=== PATIENT | female | born 1980 | race Caucasian/White ===

== ENCOUNTER 2017-02-04 15:37 | Emergency (ER) | payer MEDICAID ==
[~2017-02-04] VITALS: Ht 167.6 cm; Wt 64.1 kg
[2017-02-04] MEDS ORDERED: CHLO5CAP3 PO (15:56)
[2017-02-04] MEDS ORDERED: BUDE10.22 IH (15:56)
[2017-02-04] MEDS ORDERED: CITA10TA13 PO (15:56)
[2017-02-04] MEDS ORDERED: ALBU8.5H IH (15:56)
[2017-02-04 16:59] LABS: BASOPHILS # (AUTO) 0.05 K/uL (0.00-0.20); BASOPHILS % (AUTO) 1.4 % (0.0-2.0); EOSINOPHILS # (AUTO) 0.09 K/uL (0.00-0.70); HEMATOCRIT 36.6 % (36-46); HEMOGLOBIN 12.6 g/dL (12.0-16.0); LYMPHOCYTES # (AUTO) 1.4 K/uL (1.0-4.8); LYMPHOCYTES % (AUTO) 38.5 % (22.0-44.0); MEAN CORPUSCULAR HEMOGLOBIN 34.1 pg (26.0-34.0); MEAN CORPUSCULAR HGB CONC 34.4 G/dL (31.0-37.0); MEAN CORPUSCULAR VOLUME 99 fL (80-100); MONOCYTES # (AUTO) 0.7 K/uL (0.1-1.0); MONOCYTES % (AUTO) 19.6 % (2.0-9.0); NEUTROPHILS # (AUTO) 1.4 K/uL (1.8-7.7); NEUTROPHILS % (AUTO) 37.9 % (40.0-70.0); PLATELET COUNT (AUTO) 154 K/uL (150-450); RED BLOOD CELL COUNT(AUTO) 3.69 MIL/uL (4.00-5.20); RED CELL DISTRIBUTION WIDTH 16.6 % (11.5-14.5); WHITE BLOOD COUNT (AUTO) 3.6 K/uL (4.5-11.0)
[2017-02-04 17:18] LABS: ANION GAP 18 mmol/L (8-16); CALCIUM, TOTAL 8.5 mg/dL (8.8-10.5); CARBON DIOXIDE 26 mmol/L (22-29); CHLORIDE 104 mmol/L (98-107); CREATININE 0.64 mg/dL (0.60-1.30); GLOMERULAR FILTR. RATE CALC > 60 mL/min (>60); POTASSIUM 3.1 mmol/L (3.5-5.1); SODIUM SERUM 148 mmol/L (136-145); UREA NITROGEN, BLOOD 5 mg/dL (7-18)
[2017-02-04 17:20] LABS: RBC MORPHOLOGY COMMENT NORMAL RBC MORPH
[2017-02-04 17:26] LABS: ALANINE AMINOTRANSFERASE 118 U/L (12-78); ALBUMIN 4.2 g/dL (3.4-5.0); ASPARTATE AMINOTRANSFERASE 293 U/L (15-37); BILIRUBIN,TOTAL 0.5 mg/dL (0.1-1.0); TOTAL PROTEIN, SERUM 7.1 g/dL (6.4-8.2)
[2017-02-04] MEDS ORDERED: MAGNESIUM SULFATE 2 GM, MVI, ADULT NO.1 WITH VIT K 10 ML, THIAMINE HCL 100 MG, FOLIC AC... IV ONE ×5 (18:00)
[2017-02-04] MEDS ORDERED: POTASSIUM CHLORIDE 20 MEQ ER TABLET PO ONE (18:00)
[2017-02-04 19:55] VITALS: BP 118/78
== END 2017-02-04 19:55 | disposition home or self-care (01) ==
LOC: EMS 15:40
DX: F10.229 Alcohol dependence with intoxication, unspecified (principal); F17.210 Nicotine dependence, cigarettes, uncomplicated; J44.9 Chronic obstructive pulmonary disease, unspecified; Z91.018 Allergy to other foods
CPT/HCPCS: 36415; 80053; 80307; 84703; 85025; 96365; 99284; 99406; G0480; J3411; J3475; J3490 ×2; J7030

== ENCOUNTER 2017-03-01 12:33 | Emergency (ER) | payer MEDICAID ==
[~2017-03-01] VITALS: Ht 167.6 cm; Wt 55.9 kg
[~2017-03-01 12:33] MED LIST: ALBU8.5H8 IH; BUDE10.22 IH; CHLO5CAP3 PO; CITA10TA13 PO
[2017-03-01 14:44] LABS: BASOPHILS # (AUTO) 0.03 K/uL (0.00-0.20); EOSINOPHILS # (AUTO) 0.13 K/uL (0.00-0.70); EOSINOPHILS % (AUTO) 3.93 % (1.0-6.0); HEMATOCRIT 37.1 % (36-46); HEMOGLOBIN 12.9 g/dL (12.0-16.0); LYMPHOCYTES % (AUTO) 31.1 % (22.0-44.0); MEAN CORPUSCULAR HEMOGLOBIN 35.6 pg (26.0-34.0); MEAN CORPUSCULAR HGB CONC 34.8 G/dL (31.0-37.0); MEAN CORPUSCULAR VOLUME 102 fL (80-100); MONOCYTES # (AUTO) 0.5 K/uL (0.1-1.0); MONOCYTES % (AUTO) 15.3 % (2.0-9.0); NEUTROPHILS # (AUTO) 1.6 K/uL (1.8-7.7); NEUTROPHILS % (AUTO) 48.7 % (40.0-70.0); PLATELET COUNT (AUTO) 161 K/uL (150-450); RED BLOOD CELL COUNT(AUTO) 3.62 MIL/uL (4.00-5.20); RED CELL DISTRIBUTION WIDTH 15.9 % (11.5-14.5); WHITE BLOOD COUNT (AUTO) 3.3 K/uL (4.5-11.0)
[2017-03-01 14:54] LABS: ANION GAP 11 mmol/L (8-16); CALCIUM, TOTAL 8.8 mg/dL (8.8-10.5); CARBON DIOXIDE 32 mmol/L (22-29); CHLORIDE 102 mmol/L (98-107); CREATININE 0.52 mg/dL (0.60-1.30); GLOMERULAR FILTR. RATE CALC > 60 mL/min (>60); SODIUM SERUM 145 mmol/L (136-145); UREA NITROGEN, BLOOD 3 mg/dL (7-18)
[2017-03-01 15:00] LABS: ALANINE AMINOTRANSFERASE 98 U/L (12-78); ALBUMIN 4.2 g/dL (3.4-5.0); ASPARTATE AMINOTRANSFERASE 167 U/L (15-37); BILIRUBIN,TOTAL 0.4 mg/dL (0.1-1.0); TOTAL PROTEIN, SERUM 7.2 g/dL (6.4-8.2)
[2017-03-01 15:29] LABS: RBC MORPHOLOGY COMMENT ABNORMAL RBC MORPH
[2017-03-01] MEDS ORDERED: POTASSIUM CHLORIDE 20 MEQ ER TABLET PO ONE (15:45)
[2017-03-01 16:04] VITALS: BP 124/89
== END 2017-03-01 16:17 | disposition home or self-care (01) ==
LOC: EMS 12:34
DX: F10.229 Alcohol dependence with intoxication, unspecified (principal); J44.9 Chronic obstructive pulmonary disease, unspecified; F17.210 Nicotine dependence, cigarettes, uncomplicated; Y90.7 Blood alcohol level of 200-239 mg/100 ml; Z88.8 Allergy status to other drugs, medicaments and biological substances
CPT/HCPCS: 36415; 80053; 80307; 84703; 85025; 99284; 99406; G0480

== ENCOUNTER 2017-03-12 13:23 | Emergency (ER) | payer SELFPAY ==
[~2017-03-12] VITALS: Ht 167.6 cm; Wt 68.0 kg
[2017-03-12 13:53] LABS: BASOPHILS % (AUTO) 1.5 % (0.0-2.0); EOSINOPHILS % (AUTO) 1.8 % (1.0-6.0); HEMATOCRIT 38.9 % (36-46); HEMOGLOBIN 13.3 g/dL (12.0-16.0); LYMPHOCYTES # (AUTO) 1.2 K/uL (1.0-4.8); MEAN CORPUSCULAR HEMOGLOBIN 35.3 pg (26.0-34.0); MEAN CORPUSCULAR HGB CONC 34.1 G/dL (31.0-37.0); MEAN CORPUSCULAR VOLUME 103 fL (80-100); MONOCYTES # (AUTO) 1.2 K/uL (0.1-1.0); MONOCYTES % (AUTO) 16.4 % (2.0-9.0); NEUTROPHILS # (AUTO) 4.7 K/uL (1.8-7.7); NEUTROPHILS % (AUTO) 64.3 % (40.0-70.0); PLATELET COUNT (AUTO) 372 K/uL (150-450); RED BLOOD CELL COUNT(AUTO) 3.76 MIL/uL (4.00-5.20); RED CELL DISTRIBUTION WIDTH 14.9 % (11.5-14.5); WHITE BLOOD COUNT (AUTO) 7.3 K/uL (4.5-11.0)
[2017-03-12 14:04] LABS: ANION GAP 11 mmol/L (8-16); CALCIUM, TOTAL 8.9 mg/dL (8.8-10.5); CARBON DIOXIDE 25 mmol/L (22-29); CHLORIDE 102 mmol/L (98-107); CREATININE 0.63 mg/dL (0.60-1.30); GLOMERULAR FILTR. RATE CALC > 60 mL/min (>60); POTASSIUM 3.8 mmol/L (3.5-5.1); SODIUM SERUM 138 mmol/L (136-145); UREA NITROGEN, BLOOD 7 mg/dL (7-18)
[2017-03-12 14:10] LABS: ALANINE AMINOTRANSFERASE 72 U/L (12-78); ALBUMIN 4.2 g/dL (3.4-5.0); ASPARTATE AMINOTRANSFERASE 43 U/L (15-37); BILIRUBIN,TOTAL 0.3 mg/dL (0.1-1.0); TOTAL PROTEIN, SERUM 7.6 g/dL (6.4-8.2)
[2017-03-12] MEDS ORDERED: ChlordiazePOXIDE HCL 10 MG CAPSULE PO ONE (15:15)
[2017-03-12] MEDS ORDERED: LevETIRAcetam 500 MG TABLET PO ONE (15:15)
[2017-03-12 15:36] VITALS: BP 162/99
== END 2017-03-12 16:09 | disposition home or self-care (01) ==
LOC: EMS 13:26
DX: R56.9 Unspecified convulsions (principal); M54.2 Cervicalgia; J44.9 Chronic obstructive pulmonary disease, unspecified; F17.210 Nicotine dependence, cigarettes, uncomplicated; Z91.018 Allergy to other foods
CPT/HCPCS: 36415; 70450; 72125; 73070; 80053; 84703; 85025; 99285; G0480

== ENCOUNTER 2017-09-27 15:36 | Emergency (ER) | payer MEDICAID ==
[~2017-09-27] VITALS: Ht 167.6 cm; Wt 60.0 kg
[2017-09-27 16:55] LABS: BASOPHILS % (AUTO) 0.9 % (0.0-2.0); EOSINOPHILS % (AUTO) 1.3 % (1.0-6.0); HEMATOCRIT 36.4 % (36-46); HEMOGLOBIN 12.7 g/dL (12.0-16.0); LYMPHOCYTES # (AUTO) 1.5 K/uL (1.0-4.8); LYMPHOCYTES % (AUTO) 26.1 % (22.0-44.0); MEAN CORPUSCULAR HEMOGLOBIN 35.3 pg (26.0-34.0); MEAN CORPUSCULAR HGB CONC 34.8 G/dL (31.0-37.0); MEAN CORPUSCULAR VOLUME 101 fL (80-100); MONOCYTES # (AUTO) 0.8 K/uL (0.1-1.0); MONOCYTES % (AUTO) 13.4 % (2.0-9.0); NEUTROPHILS # (AUTO) 3.3 K/uL (1.8-7.7); NEUTROPHILS % (AUTO) 58.3 % (40.0-70.0); PLATELET COUNT (AUTO) 97 K/uL (150-450); RED BLOOD CELL COUNT(AUTO) 3.59 MIL/uL (4.00-5.20); RED CELL DISTRIBUTION WIDTH 15.2 % (11.5-14.5)
[2017-09-27 17:02] LABS: ANION GAP 14 mmol/L (8-16); CALCIUM, TOTAL 9.2 mg/dL (8.8-10.5); CARBON DIOXIDE 27 mmol/L (22-29); CHLORIDE 98 mmol/L (98-107); CREATININE 0.64 mg/dL (0.60-1.30); GLOMERULAR FILTR. RATE CALC > 60 mL/min (>60); GLUCOSE,RANDOM 145 mg/dL (70-110); POTASSIUM 3.5 mmol/L (3.5-5.1); SODIUM SERUM 139 mmol/L (136-145); UREA NITROGEN, BLOOD 6 mg/dL (7-18)
[2017-09-27 17:07] LABS: ALANINE AMINOTRANSFERASE 149 U/L (12-78); ALBUMIN 4.1 g/dL (3.4-5.0); ALKALINE PHOSPHATASE 131 U/L (46-116); ASPARTATE AMINOTRANSFERASE 379 U/L (15-37); BILIRUBIN,TOTAL 1.3 mg/dL (0.1-1.0); LIPASE 647 U/L (73-393); TOTAL PROTEIN, SERUM 7.4 g/dL (6.4-8.2)
[2017-09-27 17:08] LABS: PROTHROMBIN TIME 10.2 SEC (9.4-11.6)
[2017-09-27 17:11] LABS: AMPHET/METH SCREEN,URINE NEGATIVE (NEGATIVE); BARBITURATE SCREEN, URINE NEGATIVE (NEGATIVE); BENZODIAZEPINES SCREEN,URINE NEGATIVE (NEGATIVE); CANNABINOID SCREEN,URINE NEGATIVE (NEGATIVE); COCAINE SCREEN,URINE NEGATIVE (NEGATIVE); METHADONE SCREEN, URINE NEGATIVE (NEGATIVE); OPIATE SCREEN,URINE NEGATIVE (NEGATIVE)
[2017-09-27 17:12] LABS: PHENCYCLIDINE SCREEN,URINE NEGATIVE (NEGATIVE)
[2017-09-27 17:17] LABS: PLATELET MORPHOLOGY COMMENT LARGE PLTS PRESENT
[2017-09-27] MEDS ORDERED: PB/HYOSCY/ATR/SCOP/LIDO/MAALOX 55 ML BOTTLE PO ONE (17:45)
[2017-09-27] MEDS ORDERED: SODIUM CHLORIDE 0.9% 1,000 ML IV ONE (17:45)
[2017-09-27] MEDS ORDERED: ONDANSETRON HCL 4 MG/2 ML VIAL IVP ONE (17:45)
[2017-09-27 19:31] LABS: APPEARANCE,URINE CLEAR (CLEAR); BILIRUBIN,URINE NEGATIVE (NEGATIVE); GLUCOSE, URINE (UA) NEGATIVE (NEGATIVE); KETONES,URINE >=80 mg/dL (NEGATIVE); LEUKOCYTE ESTERASE ,URINE TRACE (NEGATIVE); NITRATE,URINE NEGATIVE (NEGATIVE); OCCULT BLOOD,URINE NEGATIVE (NEGATIVE); PH,URINE 6.5 (5.0-8.0); PROTEIN,URINE TRACE (NEGATIVE)
[2017-09-27 20:16] LABS: BACTERIA,URINE Rare /HPF (None Seen); RBC,URINE 0-2 /HPF (0-2); SQUAMOUS EPITHELIAL CELL,UR Few /LPF (None Seen)
[2017-09-27 21:20] VITALS: BP 136/67
== END 2017-09-27 21:41 | disposition home or self-care (01) ==
LOC: EMS 15:37
DX: F10.229 Alcohol dependence with intoxication, unspecified (principal); K85.90 Acute pancreatitis without necrosis or infection, unspecified; K76.9 Liver disease, unspecified; J44.9 Chronic obstructive pulmonary disease, unspecified; F17.210 Nicotine dependence, cigarettes, uncomplicated; Y90.7 Blood alcohol level of 200-239 mg/100 ml
CPT/HCPCS: 36415; 76705; 80053; 80307; 81001; 83690; 84703; 85025; 85610; 85730; 86850; 86900; 86901; 93005; 96374; 99285; 99406; G0480; J2405; J7030; Z7610

== ENCOUNTER 2018-08-17 16:08 | Emergency (ER) | payer MEDICAID ==
[~2018-08-17] VITALS: Ht 165.1 cm; Wt 65.9 kg
[~2018-08-17 16:08] MED LIST changes: -CHLO5CAP3 PO; -CITA10TA13 PO
[2018-08-17] MEDS ORDERED: DEPRESSION PO (16:14)
[2018-08-17] MEDS ORDERED: BENZOCAINE/MENTHOL LOZENGE PO ONE (17:30)
[2018-08-17] MEDS ORDERED: ACETAMINOPHEN 500 MG TABLET PO ONE (17:30)
[2018-08-17 17:54] LABS: BASOPHILS % (AUTO) 0.3 % (0.0-2.0); EOSINOPHILS % (AUTO) 0.6 % (1.0-6.0); HEMATOCRIT 37.9 % (36-46); HEMOGLOBIN 12.8 g/dL (12.0-16.0); LYMPHOCYTES # (AUTO) 1.8 K/uL (1.0-4.8); LYMPHOCYTES % (AUTO) 15.6 % (22.0-44.0); MEAN CORPUSCULAR HEMOGLOBIN 32.7 pg (26.0-34.0); MEAN CORPUSCULAR HGB CONC 33.9 G/dL (31.0-37.0); MEAN CORPUSCULAR VOLUME 97 fL (80-100); MONOCYTES # (AUTO) 0.8 K/uL (0.1-1.0); MONOCYTES % (AUTO) 7.2 % (2.0-9.0); NEUTROPHILS # (AUTO) 8.9 K/uL (1.8-7.7); NEUTROPHILS % (AUTO) 76.3 % (40.0-70.0); PLATELET COUNT (AUTO) 342 K/uL (150-450); RED BLOOD CELL COUNT(AUTO) 3.93 MIL/uL (4.00-5.20)
[2018-08-17 18:03] LABS: ANION GAP 5 mmol/L (8-16); CALCIUM, TOTAL 8.4 mg/dL (8.8-10.5); CARBON DIOXIDE 32 mmol/L (22-29); CHLORIDE 106 mmol/L (98-107); GLOMERULAR FILTR. RATE CALC > 60 mL/min (>60); GLUCOSE,RANDOM 92 mg/dL (70-110); POTASSIUM 3.4 mmol/L (3.5-5.1); SODIUM SERUM 143 mmol/L (136-145); UREA NITROGEN, BLOOD 6 mg/dL (7-18)
[2018-08-17 18:22] LABS: APPEARANCE,URINE CLOUDY (CLEAR); BILIRUBIN,URINE NEGATIVE (NEGATIVE); GLUCOSE, URINE (UA) NEGATIVE (NEGATIVE); KETONES,URINE NEGATIVE (NEGATIVE); LEUKOCYTE ESTERASE ,URINE NEGATIVE (NEGATIVE); NITRATE,URINE NEGATIVE (NEGATIVE); OCCULT BLOOD,URINE NEGATIVE (NEGATIVE); PROTEIN,URINE NEGATIVE (NEGATIVE); UROBILINOGEN,URINE 0.2 mg/dL (<=1.0)
[2018-08-17 18:33] LABS: BACTERIA,URINE None Seen /HPF (None Seen); RBC,URINE None Seen /HPF (0-2); SQUAMOUS EPITHELIAL CELL,UR Few /LPF (None Seen); WBC,URINE 0-2 /HPF (0-5)
[2018-08-17 18:34] LABS: RAPID GROUP A STREP POSITIVE (NEGATIVE)
[2018-08-17 18:39] LABS: INFLUENZA TYPE A NEGATIVE FOR TYPE A (NEGATIVE)
[2018-08-17 18:40] LABS: INFLUENZA TYPE B NEGATIVE FOR TYPE B (NEGATIVE)
[2018-08-17 18:51] VITALS: BP 109/71
== END 2018-08-17 19:21 | disposition home or self-care (01) ==
LOC: EMS 16:09
DX: J02.0 Streptococcal pharyngitis (principal); J44.9 Chronic obstructive pulmonary disease, unspecified; F32.9 Major depressive disorder, single episode, unspecified; F41.9 Anxiety disorder, unspecified; F17.210 Nicotine dependence, cigarettes, uncomplicated; Z91.018 Allergy to other foods
CPT/HCPCS: 87430; 87804; 99406

== ENCOUNTER 2018-08-20 21:14 | Emergency (ER) | payer MEDICAID ==
[~2018-08-20] VITALS: Ht 165.1 cm; Wt 59.1 kg
[~2018-08-20 21:14] MED LIST changes: +DEPRESSION PO
[2018-08-20] MEDS ORDERED: FOLI0.4T2 PO (22:11)
[2018-08-20] MEDS ORDERED: CARBXR100 PO (22:11)
[2018-08-20] MEDS ORDERED: AMOX500T2 PO (22:11)
[2018-08-20] MEDS ORDERED: KETOROLAC TROMETHAMINE 30 MG/ML VIAL IVP ONE (23:00)
[2018-08-20] MEDS ORDERED: SODIUM CHLORIDE 0.9% 1,000 ML IV ONE (23:00)
[2018-08-20 23:17] LABS: BASOPHILS % (AUTO) 0.8 % (0.0-2.0); EOSINOPHILS % (AUTO) 0.9 % (1.0-6.0); HEMATOCRIT 38.7 % (36-46); HEMOGLOBIN 13.2 g/dL (12.0-16.0); LYMPHOCYTES # (AUTO) 2.2 K/uL (1.0-4.8); LYMPHOCYTES % (AUTO) 30.8 % (22.0-44.0); MEAN CORPUSCULAR HEMOGLOBIN 32.4 pg (26.0-34.0); MEAN CORPUSCULAR VOLUME 95 fL (80-100); MONOCYTES # (AUTO) 0.7 K/uL (0.1-1.0); MONOCYTES % (AUTO) 10.1 % (2.0-9.0); NEUTROPHILS % (AUTO) 57.4 % (40.0-70.0); PLATELET COUNT (AUTO) 325 K/uL (150-450); RED BLOOD CELL COUNT(AUTO) 4.06 MIL/uL (4.00-5.20); RED CELL DISTRIBUTION WIDTH 14.4 % (11.5-14.5)
[2018-08-20 23:28] LABS: ANION GAP 10 mmol/L (8-16); CALCIUM, TOTAL 8.8 mg/dL (8.8-10.5); CARBON DIOXIDE 30 mmol/L (22-29); CHLORIDE 103 mmol/L (98-107); CREATININE 0.49 mg/dL (0.60-1.30); GLOMERULAR FILTR. RATE CALC > 60 mL/min (>60); GLUCOSE,RANDOM 88 mg/dL (70-110); POTASSIUM 3.7 mmol/L (3.5-5.1); SODIUM SERUM 143 mmol/L (136-145); UREA NITROGEN, BLOOD 7 mg/dL (7-18)
[2018-08-20 23:44] LABS: ALANINE AMINOTRANSFERASE 16 U/L (12-78); ALBUMIN 3.6 g/dL (3.4-5.0); ALKALINE PHOSPHATASE 87 U/L (46-116); ASPARTATE AMINOTRANSFERASE 19 U/L (15-37); BILIRUBIN,TOTAL 0.2 mg/dL (0.1-1.0); HCG,QUANTITATIVE < 1 mIU/mL (0-6); LIPASE 183 U/L (73-393); TOTAL PROTEIN, SERUM 7.4 g/dL (6.4-8.2)
[2018-08-21 01:23] VITALS: BP 123/89
== END 2018-08-21 01:26 | disposition home or self-care (01) ==
LOC: EMS 21:15
DX: F10.129 Alcohol abuse with intoxication, unspecified (principal); R41.82 Altered mental status, unspecified; J44.9 Chronic obstructive pulmonary disease, unspecified; F17.210 Nicotine dependence, cigarettes, uncomplicated; F32.9 Major depressive disorder, single episode, unspecified; F41.9 Anxiety disorder, unspecified; Y90.7 Blood alcohol level of 200-239 mg/100 ml; Z79.899 Other long term (current) drug therapy
CPT/HCPCS: 36415; 80053; 83690; 84702; 85025; 96361; 96374; 99283; 99406; G0480; J1885; J7030

== ENCOUNTER 2018-10-23 15:56 | Emergency (ER) | payer MEDICAID ==
[~2018-10-23] VITALS: Ht 170.2 cm; Wt 61.4 kg
[~2018-10-23 15:56] MED LIST changes: +AMOX500T2 PO; +CARBXR100 PO; -DEPRESSION PO; +FOLI0.4T2 PO
[2018-10-23] MEDS ORDERED: CARB200T6 PO (16:02)
[2018-10-23 16:27] LABS: EOSINOPHILS % (AUTO) 0.7 % (1.0-6.0); HEMATOCRIT 36.9 % (36-46); HEMOGLOBIN 12.6 g/dL (12.0-16.0); LYMPHOCYTES # (AUTO) 1.9 K/uL (1.0-4.8); LYMPHOCYTES % (AUTO) 37.6 % (22.0-44.0); MEAN CORPUSCULAR HGB CONC 34.1 G/dL (31.0-37.0); MEAN CORPUSCULAR VOLUME 97 fL (80-100); MONOCYTES # (AUTO) 0.4 K/uL (0.1-1.0); MONOCYTES % (AUTO) 8.6 % (2.0-9.0); NEUTROPHILS # (AUTO) 2.6 K/uL (1.8-7.7); NEUTROPHILS % (AUTO) 52.1 % (40.0-70.0); PLATELET COUNT (AUTO) 171 K/uL (150-450); RED BLOOD CELL COUNT(AUTO) 3.81 MIL/uL (4.00-5.20); RED CELL DISTRIBUTION WIDTH 15.1 % (11.5-14.5)
[2018-10-23 16:37] LABS: APPEARANCE,URINE CLEAR (CLEAR); BILIRUBIN,URINE NEGATIVE (NEGATIVE); GLUCOSE, URINE (UA) NEGATIVE (NEGATIVE); KETONES,URINE NEGATIVE (NEGATIVE); LEUKOCYTE ESTERASE ,URINE NEGATIVE (NEGATIVE); NITRATE,URINE NEGATIVE (NEGATIVE); OCCULT BLOOD,URINE NEGATIVE (NEGATIVE); PROTEIN,URINE NEGATIVE (NEGATIVE); UROBILINOGEN,URINE 0.2 mg/dL (<=1.0)
[2018-10-23 16:37] LABS: ANION GAP 8 mmol/L (8-16); CALCIUM, TOTAL 7.7 mg/dL (8.8-10.5); CARBON DIOXIDE 32 mmol/L (22-29); CHLORIDE 105 mmol/L (98-107); CREATININE 0.48 mg/dL (0.60-1.30); GLOMERULAR FILTR. RATE CALC > 60 mL/min (>60); GLUCOSE,RANDOM 96 mg/dL (70-110); POTASSIUM 3.5 mmol/L (3.5-5.1); SODIUM SERUM 145 mmol/L (136-145); UREA NITROGEN, BLOOD 6 mg/dL (7-18)
[2018-10-23 16:40] LABS: INR 0.9 (0.9-1.1); PROTHROMBIN TIME 9.8 SEC (9.4-11.6)
[2018-10-23 16:46] LABS: B-TYPE NATRIURETIC PEPTIDE 38 pg/mL (0-100)
[2018-10-23 16:49] LABS: ALANINE AMINOTRANSFERASE 13 U/L (12-78); ALBUMIN 3.7 g/dL (3.4-5.0); ALKALINE PHOSPHATASE 65 U/L (46-116); ASPARTATE AMINOTRANSFERASE 23 U/L (15-37); BILIRUBIN,TOTAL 0.3 mg/dL (0.1-1.0); HCG,QUANTITATIVE < 1 mIU/mL (0-6); TOTAL PROTEIN, SERUM 6.9 g/dL (6.4-8.2)
[2018-10-23 16:50] LABS: AMPHET/METH SCREEN,URINE NEGATIVE (NEGATIVE); BARBITURATE SCREEN, URINE POSITIVE (NEGATIVE); BENZODIAZEPINES SCREEN,URINE NEGATIVE (NEGATIVE); CANNABINOID SCREEN,URINE POSITIVE (NEGATIVE); COCAINE SCREEN,URINE NEGATIVE (NEGATIVE); METHADONE SCREEN, URINE NEGATIVE (NEGATIVE); OPIATE SCREEN,URINE NEGATIVE (NEGATIVE)
[2018-10-23 16:51] LABS: CARBAMAZEPINE (TEGRETOL) < 0.5 mcg/mL (4.0-12.0)
[2018-10-23 16:51] LABS: PHENCYCLIDINE SCREEN,URINE NEGATIVE (NEGATIVE)
[2018-10-23] MEDS ORDERED: LORazepam 1 MG TABLET PO ONE (17:30)
[2018-10-23] MEDS ORDERED: MAGNESIUM SULFATE 2 GM, MVI, ADULT NO.1 WITH VIT K 10 ML, THIAMINE HCL 100 MG, FOLIC AC... IV ONE ×5 (17:30)
[2018-10-23] MEDS ORDERED: CarBAMazepine 200 MG TABLET PO ONE (18:15)
[2018-10-23 21:07] VITALS: BP 110/71
== END 2018-10-23 21:09 | disposition home or self-care (01) ==
LOC: EMS 15:57
DX: T51.91XA Toxic effect of unspecified alcohol, accidental (unintentional), initial encounter (principal); G40.909 Epilepsy, unspecified, not intractable, without status epilepticus; R07.89 Other chest pain; F41.9 Anxiety disorder, unspecified; J44.9 Chronic obstructive pulmonary disease, unspecified; F32.9 Major depressive disorder, single episode, unspecified; F17.210 Nicotine dependence, cigarettes, uncomplicated; Y92.89 Other specified places as the place of occurrence of the external cause
CPT/HCPCS: 36415; 70450; 71045; 72125; 80053; 80156; 80307; 81003; 83880; 84484; 84702; 85025; 85610; 85730; 93005; 96365; 96366; 99285; 99406; G0480; J3411; J3475; J3490 ×2; J7030